=== PATIENT | female | born 1985 | race Caucasian/White ===

== ENCOUNTER → 2016-07-29 | Outpatient (REF) | payer OTHER, SELFPAY ==
[2016-07-29 18:55] LABS: FREE T4 0.84 NG/DL (0.76-1.46); TOTAL PROTEIN 7.3 GM/DL (6.4-8.2)
[2016-08-02 12:32] LABS: ALBUMIN % 59.1 % (55.8-66.1)
[2016-08-02 12:33] LABS: ALBUMIN 4.31 GM/DL (3.29-5.55); GAMMA GLOBULIN % 17.8 % (11.1-18.8)
== END ==
LOC: M LABNEURO 16:55
PROVIDERS: ATTEND Psychiatry & Neurology Neurology
DX: G43.909 Migraine, unspecified, not intractable, without status migrainosus (principal); M54.5 Low back pain; M54.2 Cervicalgia; G89.29 Other chronic pain

== ENCOUNTER → 2016-10-26 | Outpatient (CLI) | payer OTHER | LOC: M LAB 15:33 | PROVIDERS: ATTEND Internal Medicine Gastroenterology | DX: R19.7 Diarrhea, unspecified (principal) ==

== ENCOUNTER → 2016-10-27 | Outpatient (REF) | payer OTHER | LOC: M LAB REF 12:47 | PROVIDERS: ATTEND Internal Medicine Gastroenterology | DX: R19.7 Diarrhea, unspecified (principal) ==